=== PATIENT | male | born 1980 | race Caucasian/White ===

== ENCOUNTER → 2024-05-06 12:03 | Outpatient (REF) | payer OTHER, SELFPAY | LOC: RAD 12:03 | PROVIDERS: ATTENDING PHYSICIAN Family Medicine | DX: Z13.6 Encounter for screening for cardiovascular disorders (principal) | CPT/HCPCS: 93005 ==

== ENCOUNTER → 2024-05-20 12:36 | Outpatient (REF) | payer OTHER, SELFPAY | LOC: RAD 12:36 | PROVIDERS: ATTENDING PHYSICIAN Family Medicine | DX: K40.90 Unilateral inguinal hernia, without obstruction or gangrene, not specified as recurrent (principal) | CPT/HCPCS: 76882 ==